=== PATIENT | female | born 1945 | race Caucasian/White ===

== ENCOUNTER 2016-03-15 15:17 | Inpatient (IN) | payer MEDICARE, OTHER ==
[~2016-03-15] VITALS: Ht 160 cm; Wt 63.5 kg
[2016-03-15] VITALS: BP 102/87
[~2016-03-15 15:17] MED LIST: ACTIGALL 300 M300 MG PO; CALTRATE 600 M600 M1 PO; CORGARD20 MG PO; CYMBALTA60 MG PO; DURAGESIC1 PATCH .4 TRANSDERM; KEPPRA500 MG PO; MILK OF MAGNESI30 ML PO; NORCO 7.5/325 T1 TA1 PO; NORVASC5 MG PO; PLAQUENIL200 MG; PLAQUENIL200 MG PO; PRILOSEC20 MG PO; ROCALTROL0.25 MCG PO; SYNTHROID112 MCG PO; VITAMIN D31000 UNIT PO; VOLTAREN100 GM TOPICAL
[2016-03-15 19:30] LABS: BASOPHILS 0.2 % (0.0-2.0); EOSINOPHILS 0.3 % (0-7); HEMATOCRIT 46.1 % (36.0-48.0); HEMOGLOBIN 15.4 g/dL (12-16); IMMATURE GRANULOCYTES 0.2 % (0-5); LYMPHOCYTES 7.5 % (15-50); MCH 31.3 pg (26.0-34.0); MCHC 33.4 g/dL (31.0-37.0); MCV 93.7 fL (80.0-100.0); MEAN PLATELET VOLUME 10.9 fL (7.4-10.4); NEUTROPHILS 87.8 % (40-80); PLATELET COUNT 193 10x3/uL (130-400); RBC 4.92 10x6/uL (4.00-5.40); RDW 13.5 % (11.5-14.5); WBC 10.6 10x3/uL (4.8-10.8)
[2016-03-15 20:08] LABS: ALKALINE PHOSPHATASE 92 U/L (46-116); ALT (SGPT) 26 U/L (10-68); BILIRUBIN - TOTAL 0.82 mg/dL (0.2-1.3); CALC OSMOLALITY 282 mosm/kg (275-300); CALCIUM 9.8 mg/dL (8.5-10.1); CHLORIDE - SERUM 100 mmol/L (98-107); CREATININE - SERUM 0.6 mg/dL (0.6-1.3); GLUCOSE 162 mg/dL (74-106); POTASSIUM - SERUM 3.1 mmol/L (3.5-5.1); PROTEIN - SERUM 7.6 g/dL (6.4-8.2); SODIUM 139 mmol/L (136-145); UREA NITROGEN 16 mg/dL (7-18); eGFR NON AFRICAN AMERICAN > 90 mL/min (90-120)
[2016-03-15 20:18] LABS: AMYLASE - SERUM 112 U/L (25-115); LIPASE 76 U/L (73-393); PRO BNP 355 pg/mL (0-125); TROPONIN-I < 0.017 ng/mL (0.000-0.060)
--- NOTE | 2016-03-15 20:50 | NUR ---
PT ARRIVED TO ICU VIA STRETCHER FROM ER. VSS. PIV TO RIGHT AC; PATENT.
--- NOTE | 2016-03-15 21:25 | NUR ---
ASSESSMENT COMPELTE. S1S2. PT LETHARGIC; EASILY AROUSED; FALLS ASLEEP WHILE TALKING. STATED, "THE SHOTS THEY GAVE ME, MADE ME SLEEPY." PERRLA 2MM; BRISK. AAO. RADIAL AND PEDAL PULSES PALPATED. VSS.
[2016-03-15 21:59] VITALS: BP 126/86; BMI 24.8
[2016-03-15 23:00] VITALS: BP 107/87
[2016-03-15 23:15] VITALS: BP 115/87
[2016-03-15 23:30] VITALS: BP 117/87
[2016-03-15 23:45] VITALS: BP 122/78
[2016-03-16] VITALS (40 sets, daily range): BP systolic 28–142; BP diastolic 56–98; Ht 160 cm; Wt 63.5 kg
--- NOTE | 2016-03-16 01:20 | NUR ---
PT RESTING; EYES CLOSED. NO DISTRESS NOTED. VSS. CALL LIGHT IN REACH. WILL CONTINUE TO MONITOR.
--- NOTE | 2016-03-16 03:00 | NUR ---
REASSESSMENT COMPELTE. NO CHANGES FROM PREVIOUS ASSESSMENT. WILL CONTINUE TO MONITOR.
[2016-03-16 05:23] LABS: BASOPHILS 0.1 % (0.0-2.0); EOSINOPHILS 0 % (0-7); HEMATOCRIT 40.8 % (36.0-48.0); HEMOGLOBIN 13.5 g/dL (12-16); IMMATURE GRANULOCYTES 0.3 % (0-5); LYMPHOCYTES 16.7 % (15-50); MCH 30.9 pg (26.0-34.0); MCHC 33.1 g/dL (31.0-37.0); MCV 93.4 fL (80.0-100.0); MEAN PLATELET VOLUME 10.7 fL (7.4-10.4); MONOCYTES 6.3 % (2-11); NEUTROPHILS 76.6 % (40-80); PLATELET COUNT 204 10x3/uL (130-400); RBC 4.37 10x6/uL (4.00-5.40); RDW 13.4 % (11.5-14.5)
[2016-03-16 05:27] LABS: WBC 7.8 10x3/uL (4.8-10.8)
[2016-03-16 05:29] LABS: CALC OSMOLALITY 284 mosm/kg (275-300); CALCIUM 8.6 mg/dL (8.5-10.1); CARBON DIOXIDE 21.9 mmol/L (21.0-32.0); CHLORIDE - SERUM 103 mmol/L (98-107); CREATININE - SERUM 0.7 mg/dL (0.6-1.3); GLUCOSE 74 mg/dL (74-106); POTASSIUM - SERUM 3.2 mmol/L (3.5-5.1); SODIUM 142 mmol/L (136-145); UREA NITROGEN 20 mg/dL (7-18); eGFR NON AFRICAN AMERICAN 88 mL/min (90-120)
--- NOTE | 2016-03-16 07:30 | NUR ---
ASSESSMENT COMPLETE. AAO X4. RT PUPIL 4MM BRISK, LT PUPIL 3MM BRISK. RRLA. S1S2 NOTED, RADIAL AND PEDAL PULSES PALP. CLEAR LUNGS, ROOM AIR. NSR. ACTIVE BOWEL SOUNDS X4. UP WITH SUPERVISION TO BEDSIDE COMMOADE. FOR OTHER ASSESSMENT FINDINGS SEE FLOWSHEET
--- NOTE | 2016-03-16 09:00 | NUR ---
FAMILY AT BEDSIDE. DENIES NEEDS. QUESTIONS ANSWERED. PATIENT WAS ABLE TO SWALLOW HONEY THICKENED WATER WITH PILLS.
--- NOTE | 2016-03-16 11:10 | NUR ---
NOTIFIED DR. TLELO'S OPERATIONS INTELLIGENCE SUPERINTENDENT JEANINE OF UNEQUAL PUPIL SIZE
--- NOTE | 2016-03-16 11:25 | NUR ---
DR. TELLO'S NURSE AT BEDSIDE SPEAKING WITH FAMILY. REASSESSMENT COMPLETE. SEE FLOWSHEET FOR DETAILS.
--- NOTE | 2016-03-16 12:02 | NUR ---
CALLED DR. LONG OFFICE TO CLARIFY ORDERS, WILL CALL BACK LATER
--- NOTE | 2016-03-16 13:30 | NUR ---
RECEIVED NEW ORDERS FROM DR. LONG
--- NOTE | 2016-03-16 15:15 | NUR ---
REASSESSMENT COMPLETE, SEE FLOWSHEET FOR DETAILS.
--- NOTE | 2016-03-16 17:03 | NUR ---
REMAINS NSR ON MONITOR. DENIES PAIN. DENIES NEEDS. ROOM AIR.
--- NOTE | 2016-03-16 18:27 | NUR ---
FAMILY AT BEDSIDE, UPDATE PROVIDED
--- NOTE | 2016-03-16 19:00 | NUR ---
RECEIVED PATIENT AWAKE IN BED WITH AT BEDSIDE, ASSESSMENT COMPLETE PER FLOW SHEET. PATIENT IS AO X4, DEMEANOR IS PLEASANT. EYES PERRLA WITH L @ 3MM AND R @ 4MM BRISK RESPONSE BILATERAL, SCLERA IS WHITE. ORAL/NASAL MUCOSA IS MOIST AND INTACT, TONGUE IS MIDLINE. S1/S2 NOTED WITH PATIENT NSR ON TELEMETRY, RATE IS RYTHMIC AND REGULAR. BREATHING IS EVEN AND EFFORTLESS ON RA, LUNG SOUNDS CLEAR THROUGHOUT. ABDOMEN IS SOFT AND NON-TENDER, BOWEL SOUNDS SLIGHTLY HYPOACTIVE X4. PATIENT IS ABLE TO USE BEDSIDE COMMODE, NO PAIN OR DIFFICULTY NOTED. FULL ROM ALL EXTREMITIES, NO WEAKNESS NOTED IN TICKET SCHEDULER/PEDAL. ALL PULSES PALPABLE, CAP REFILL <3 SEC. 20G IV R AC WITH FLUIDS INFUSING, SEE FLOW SHEET. PATIENT STATES HEADACHE WITH PAIN 2/10, ALREADY GIVEN MEDICATION TO RELIEVE AND WILL REASSESS. PATIENT STATES HX OF "BRAIN BLEEDS" WELL HX OF "CREST SYNDROME" WHICH CAUSES CHRONIC DISCOMFORT. NO FURTHER NEEDS AT THIS TIME, ALL VSS AND WILL CONTINUE TO MONITOR.
--- NOTE | 2016-03-16 21:00 | NUR ---
NO VISITORS AT THIS TIME, PATIENT AWAKE IN BED WITH EYES CLOSED. C/O HEADACHE PAIN 08/31, GIVEN PRN PAIN MEDICATION AND MAYLIN REASSESS. BEDTIME MEDICATION GIVEN WITH NO DIFFICULTY, PATIENT SWALLOWED WITH REGULAR WATER. NO FURTHER NEEDS AT THIS TIME, ALL VSS AND WILL CONTINUE TO MONITOR.
--- NOTE | 2016-03-16 23:00 | NUR ---
REASSESSMENT COMPLETE PER FLOWSHEET, PATIENT RESTING IN BED AWAKE WITH EYES CLOSED. PATIENT C/O HEADACHE SPECIFICALLY AROUND R EYE, NO ERYTHEMA OR SWELLING NOTED AT THIS TIME. PATIENT AO X4, DEMEANOR IS PLEASANT WITH FACIAL WINCING FROM DISCOMFORT. PATIENT RATES PAIN 3/10, PRN PAIN MEDICATION GIVEN AND WILL REASSESS. REPOSITIONED FOR COMFORT, DENIES OTHER NEEDS AT THIS TIME. ALL VSS AND WILL CONTINUE TO MONITOR.
[2016-03-17] VITALS (24 sets, daily range): BP systolic 113–147; BP diastolic 57–93
--- NOTE | 2016-03-17 01:20 | NUR ---
PATIENT AMBULATED TO BEDSIDE COMMODE ON OWN AND WASHED HANDS IN SINK AFTER. SMALL AMOUNT OF FORMED STOOL PRESENT, 200ML CLEAR YELLOW URINE NOTED IN COMMODE. PATIENT STATES HEADACHE IS "BETTER" AND IS ATTEMPTING TO REST. PATIENT DENIES OTHER NEEDS AT THIS TIME, ALL VSS AND WILL CONTINUE TO MONITOR.
--- NOTE | 2016-03-17 02:50 | NUR ---
REASSESSMENT COMPLETE PER FLOWSHEET, PATIENT RESTING IN BED WITH EYES CLOSED. PATIENT IS AO X4, DEMEANOR IS PLEASANT. BREATHING IS EVEN AND UNLABORED ON RA, OXYGEN SAT IS 97%. PATIENT STILL C/O HEADACHE BUT STATES THAT "PAIN IS MUCH BETTER". PATIENT DENIES OTHER NEEDS AT THIS TIME, ALL VSS AND WILL CONTINUE TO MONITOR.
[2016-03-17 04:23] LABS: BASOPHILS 0.2 % (0.0-2.0); EOSINOPHILS 1.6 % (0-7); HEMATOCRIT 40.7 % (36.0-48.0); HEMOGLOBIN 13.3 g/dL (12-16); IMMATURE GRANULOCYTES 0.2 % (0-5); LYMPHOCYTES 18.3 % (15-50); MCH 30.8 pg (26.0-34.0); MCHC 32.7 g/dL (31.0-37.0); MCV 94.2 fL (80.0-100.0); MEAN PLATELET VOLUME 10.6 fL (7.4-10.4); MONOCYTES 10.8 % (2-11); NEUTROPHILS 68.9 % (40-80); PLATELET COUNT 194 10x3/uL (130-400); RBC 4.32 10x6/uL (4.00-5.40); RDW 13.6 % (11.5-14.5); WBC 8.2 10x3/uL (4.8-10.8)
[2016-03-17 04:25] LABS: CALC OSMOLALITY 278 mosm/kg (275-300); CALCIUM 8.2 mg/dL (8.5-10.1); CARBON DIOXIDE 26.5 mmol/L (21.0-32.0); CHLORIDE - SERUM 102 mmol/L (98-107); CREATININE - SERUM 0.6 mg/dL (0.6-1.3); GLUCOSE 76 mg/dL (74-106); POTASSIUM - SERUM 3.5 mmol/L (3.5-5.1); SODIUM 140 mmol/L (136-145); UREA NITROGEN 15 mg/dL (7-18); eGFR NON AFRICAN AMERICAN > 90 mL/min (90-120)
--- NOTE | 2016-03-17 05:51 | NUR ---
PATIENT RESTING IN BED WITH EYES CLOSED, BREATHING IS EVEN AND EFFORTLESS. PATIENT STATES HEADACHE IS "STILL THERE BUT BETTER", RATES PAIN 1/10. PATIENT DENIES OTHER NEEDS AT THIS TIME, ALL VSS AND WILL CONTINUE TO MONITOR.
--- NOTE | 2016-03-17 07:00 | NUR ---
REC'D REPORT AND RESUMED CARE, SLEEPING AROUSABLE TO VERBAL STIMULI, LETHARGIC AND ORIENTED, VSS, O2 VIA NASAL CANNULA, SAT 97%, BSC IN USE, VSS, ASSESSMENT COMPLETE PER FLOWSHEET, SELF REPOSITIONS, CALL LIGHT IN REACH, C/O ESPARZA , MEDS GIVEN AT 0605, WILL CONTINUE WITH POC
--- NOTE | 2016-03-17 07:30 | NUR ---
DR LINN HERE FOR EVAL, NEW ORDERS GIVEN
--- NOTE | 2016-03-17 09:00 | NUR ---
AM MEDS GIVEN WITHOUT DIFFICULTY
--- NOTE | 2016-03-17 09:38 | NUR ---
Is the patient Alert and Oriented? Yes 0 * How many steps to enter\exit or inside your home? 0 0 * PCP DR. LINN 0 * Pharmacy [facility] [address] * Preadmission Environment Home with Family 0 * ADLs Independent 0 * Equipment Cane Walker 0 * Other Equipment PATIENT STATES WALKER WITH A SEAT 0 * List name and contact numbers for known caregivers / representatives who currently or will assist patient after discharge: SPOUSE: ABIMAEL MCGOVERN [phone] 0 * Community resources currently utilized None 0 * Additional services required to return to the preadmission environment? No 0 * Can the patient safely return to the preadmission environment? Yes 0 * Has this patient been hospitalized within the prior 30 days at any hospital? No PATIENT STATES SHE WAS INDEPENDENT AND LIVING AT HOME WITH HER PRIOR TO COMING TO THE HOSPITAL. HER PCP IS DR. LINN. SHE GETS HER MEDS FROM THE [facility] [employer] [facility] [address] PATIENT STATES SHE HAS A WALKER WITH SEAT, A CANE, AND GRAB BARS IN HER SHOWER. PATIENT DENIES EVER HAVING HOME HEALTH. SHE STATES THERE ARE NOT STEPS TO ENTER HER HOME. PATIENT AND HER DO NOT WANT ANY TYPE OF REHAB. SHE DOES NOT HAVE ANY DEFICITS AT THIS TIME. PATIENT PLANS TO RETURN HOME AND HER SPOUSE WILL DRIVE HER HOME AT DISCHARGE.
--- NOTE | 2016-03-17 10:15 | NUR ---
TO RADIOLOGY FOR HEAD CT VIA WHEELCHAIR WITH PERSONNEL X1, NO NEEDS AT THIS TIME
--- NOTE | 2016-03-17 11:00 | NUR ---
ASSISTED WITH BATH AND COMPLETED LINEN CHANGE, ASSESSMENT COMPLETE PER FLOWSHEET, SELF REPOSITIONS, TOLERATED WITHOUT DIFFICULTY, NO NEEDS AT THIS TIME
--- NOTE | 2016-03-17 12:00 | NUR ---
FAMILY AT THE BEDSIDE, STATUS UPDATED, AWAITING FOR RESULTS OF REPEAT CT, NO OTHER NEEDS AT THIS TIME
--- NOTE | 2016-03-17 12:25 | NUR ---
PC FROM DR PRESSLEY, INFO GIVEN FOR CONSULT
--- NOTE | 2016-03-17 13:05 | NUR ---
OOB TO BSC, LARGE FORM STOOL TO AGOSTO, SKINCARE INDPENDENT, STAND BY ASSIST FOR BTB
--- NOTE | 2016-03-17 17:01 | NUR ---
OOB TO BSC WITH STAND BY ASSIST, 300 CC URINE TO COMMODE
--- NOTE | 2016-03-17 19:15 | NUR ---
FAMILY AT BEDSIDE; UPDATE GIVEN.
--- NOTE | 2016-03-17 19:30 | NUR ---
ASSESSMENT COMPLETE. S1S2. RR SHALLOW CLEAR BILATERALLY IN UPPER LOBES; SLIGHT DIMINISHING BILATERALLY IN LOWER LOBES. RADIAL/PEDAL PULSES PALPATED. AAO. DENIES PAIN AT THIS TIME, STATED, "HAD A HEADACHE EARLIER." CALCIUM DEPOSITS NOTED BILATERALLY ON ELBOWS, TEGADERM APPLIED PER PATIENT REQUEST.
--- NOTE | 2016-03-17 20:50 | NUR ---
PT C/O HEACACHE. PRN HYDRO GIVEN. SEE EMAR FOR DETAILS.
--- NOTE | 2016-03-17 23:00 | NUR ---
REASSESSMENT COMPLETE. NO CHANGES FROM PREVIOUS ASSESSMENT. VSS. CALL LIGHT IN REACH. SEE FLOW SHEET FOR DETAILS.
[2016-03-18] VITALS (18 sets, daily range): BP systolic 111–139; BP diastolic 48–99
--- NOTE | 2016-03-18 00:35 | NUR ---
PT RESTING; EYES CLOSED. NO DISTRESS NOTED. VSS. CALL LIGHT IN REACH. WILL CONTINUE TO MONITOR.
--- NOTE | 2016-03-18 02:45 | NUR ---
REASSESSMENT COMPELTE. NO CHANGES FROM PREVIOUS ASSESSMENT. CALL LIGHT IN REACH. VSS.
[2016-03-18 04:54] LABS: BASOPHILS 0.4 % (0.0-2.0); HEMATOCRIT 39.5 % (36.0-48.0); HEMOGLOBIN 13.1 g/dL (12-16); IMMATURE GRANULOCYTES 0.2 % (0-5); LYMPHOCYTES 27.6 % (15-50); MCH 30.8 pg (26.0-34.0); MCHC 33.2 g/dL (31.0-37.0); MCV 92.7 fL (80.0-100.0); MEAN PLATELET VOLUME 10.3 fL (7.4-10.4); MONOCYTES 11.1 % (2-11); NEUTROPHILS 58.7 % (40-80); PLATELET COUNT 168 10x3/uL (130-400); RBC 4.26 10x6/uL (4.00-5.40); RDW 13.3 % (11.5-14.5)
[2016-03-18 05:03] LABS: WBC 5.4 10x3/uL (4.8-10.8)
[2016-03-18 05:07] LABS: APTT 29.3 SECONDS (22.8-39.4); INR 1.07 (0.85-1.17); PROTIME 13.8 SECONDS (11.6-15.0)
--- NOTE | 2016-03-18 07:15 | NUR ---
REC'D REPORT AND RESUMED CARE, AAO, VSS, DENIES PAIN, ASSESSMENT COMPLETE PER FLOWSHEET, OOB TO CHAIR WITH MODERATE ASSIST, TOLERATED TRANSFER, CALL LIGHT, IN REACH, SPOUSE AT BEDSIDE, AWAITNG TO TO SPEAK WITH DR. LINN, NO OTHER NEEDS AT THIS TIME
--- NOTE | 2016-03-18 08:15 | NUR ---
OUT OF CHAIR TO BSC WITH ASSIST, LARGE FORMED STOOL TO AGOSTO, SKINCARE INDEPENDENTLY, BACK TO CHAIR WITH ASSIST
--- NOTE | 2016-03-18 08:30 | NUR ---
BREAKFAST TRAY TO CHAIR SIDE, INDEPENDENT WITH SET UP AND EATING
--- NOTE | 2016-03-18 09:13 | NUR ---
NUTRITION MONITORING & EVAL CHART REVIEWED, PT VISIT. TOLERATING REG DIET, GOOD PO INTAKE PER PT REPORT. WAITING FOR TX TO FLOOR. RD FOLLOWING
--- NOTE | 2016-03-18 11:00 | NUR ---
NO ACUTE CHANGE FROM PREVIOUS ASSESSMENT, VSS, DENIES PAIN, CALL LIGHT IN REACH, NO NEEDS AT THIS TIME
--- NOTE | 2016-03-18 12:00 | NUR ---
LUNCH TRAY TO BEDSIDE, INDEPENDENT WITH SET UP AND EATING, NO OTHER NEEDS AT THIS TIME, SPOUSE AT BEDSIDE, STATUS UPDATED, AWAITING TRANSFER OUT OF ICU
--- NOTE | 2016-03-18 15:00 | NUR ---
FAMILY AND FRIENDS AT BEDSIDE, STATUS UPDATED, ASSESSMENT COMPLETE, NO ACUTE CHANGE FROM PREVIOUS
--- NOTE | 2016-03-18 16:30 | NUR ---
FENTANYL [address] TO RIGHT CHEST PER APR ORDER, I AND O'S COMPLETED
--- NOTE | 2016-03-18 18:00 | NUR ---
RESTING WITH SPOUSE AT BEDSIDE, VSS, CALL LIGHT IN REACH, DENIES ANY NEEDS AT THIS TIME
--- NOTE | 2016-03-18 19:30 | NUR ---
ASSESSMENT COMPLETE. S1S2. RR CLEAR BILATERALLY; NON LABORED. PT AMBULATES WITHOUT ASSIST. AAO. PERRLA. CALCIUM DEPOSITS BILATERALLY ON ELBOWS. RADIAL AND PEDAL PULSES PALPATED.
--- NOTE | 2016-03-18 21:45 | NUR ---
PT UP TO BEDSIDE COMMODE; INDEPENDENTLY. OUTPUT: 400 CLEAR YELLOW URINE.
[2016-03-19 03:00] VITALS: BP 129/65
[2016-03-19 04:28] LABS: BASOPHILS 0.1 % (0.0-2.0); EOSINOPHILS 1.2 % (0-7); HEMATOCRIT 39.5 % (36.0-48.0); HEMOGLOBIN 13.2 g/dL (12-16); IMMATURE GRANULOCYTES 0.1 % (0-5); LYMPHOCYTES 18.5 % (15-50); MCH 30.8 pg (26.0-34.0); MCHC 33.4 g/dL (31.0-37.0); MCV 92.3 fL (80.0-100.0); MEAN PLATELET VOLUME 10.2 fL (7.4-10.4); MONOCYTES 10.7 % (2-11); NEUTROPHILS 69.4 % (40-80); PLATELET COUNT 172 10x3/uL (130-400); RBC 4.28 10x6/uL (4.00-5.40); RDW 13.4 % (11.5-14.5)
--- NOTE | 2016-03-19 04:30 | NUR ---
PT UP TO BEDSIDE COMMODE; SUPERVISED BUT INDEPENDENT. GAIT STEADY; VSS.
[2016-03-19 04:36] LABS: CALC OSMOLALITY 275 mosm/kg (275-300); CALCIUM 7.9 mg/dL (8.5-10.1); CHLORIDE - SERUM 102 mmol/L (98-107); CREATININE - SERUM 0.5 mg/dL (0.6-1.3); GLUCOSE 81 mg/dL (74-106); POTASSIUM - SERUM 3.1 mmol/L (3.5-5.1); SODIUM 140 mmol/L (136-145); UREA NITROGEN 8 mg/dL (7-18); eGFR NON AFRICAN AMERICAN > 90 mL/min (90-120)
[2016-03-19 04:44] LABS: WBC 7.3 10x3/uL (4.8-10.8)
--- NOTE | 2016-03-19 05:45 | NUR ---
PT WOKE UP CONFUSED. UNAWARE OF LOCATION. PT STATED, "IT DOESN'T FEEL RIGHT." PT AWARE OF BEING CONFUSED. REMEMBERED THIS NURSE BY NAME. VSS. GARCIA. WILL CONTINUE TO MONITOR.
--- NOTE | 2016-03-19 07:28 | NUR ---
ASSESSMENT COMPLETE PER FLOWSHEET. VOICES NO CO AT TIME. OK FOR DISCHARGE PER DR AWAD. DR PRESSLEY CALLED NO F/U NEEDED. KELSIE AZAR CALLED F/U MADE AND ALREADY GIVEN TO PT.
--- NOTE | 2016-03-19 08:50 | NUR ---
LEFT VIA PRIVATE AUTO. VOICES NO QUESTIONS ABOUT DISCHARGE.
--- NOTE | 2016-03-24 07:21 | HP ---
PATIENT: ABISAI MCGOVERN MEDICAL RECORD: [id number] ACCOUNT: [id number] LOCATION:[facility] D.[id number] : 47 ADMISSION DATE: 03/15/16 HISTORY AND PHYSICAL EXAMINATION DATE OF ADMISSION: 03/15/2016 CHIEF COMPLAINT: Chronic nausea, vomiting and headache. HISTORY OF PRESENT ILLNESS: The patient is a 70-year-old female with history of CREST syndrome. The patient states for the past several days, she has had chronic nausea. She has had vomiting. On the day of her admission, she developed a headache, presented to the Emergency Room. The patient had a chest x-ray, which was unremarkable, but she also had a cranial CT scan, which showed two areas of hemorrhage. The patient has had parathyroid adenoma. She has had a hysterectomy. She has also had a tubal and tonsillectomy. She has had a history of having CREST syndrome. FAMILY HISTORY: Mother had heart disease. Father had myocardial infarction. ALLERGIES: PENICILLIN, PREDNISONE. MEDICATIONS: Include amlodipine 5 mg 1 p.o. q. day, Celebrex 200 mg 1 p.o. b.i.d. with food, Cymbalta 60 mg 1 p.o. q. day, fentanyl 12 mcg transdermal patch changing every 72 hours, Tiona 7.5/325 one every 6 hours, levothyroxine 100 mcg once a day, nadolol 20 mg p.o. q. day, ursodiol 300 mg twice daily, Voltaren 1% topical cream applying 4 times a day. HABITS: Does state she is a moderate caffeine consumer. She denies any tobacco use or alcohol use. SOCIAL HISTORY: The patient was born in [place], [place]. She is retired, 2 years of college education. She is currently . REVIEW OF SYSTEMS: CONSTITUTIONAL: The patient does report having a headache. At the present time she is having no headache. She denies any change in visual or auditory acuity. CARDIOVASCULAR: She denies any chest pain, palpitation, PND, orthopnea. GASTROINTESTINAL: As stated above. GENITOURINARY: No urgency, frequency, or dysuria. PHYSICAL EXAMINATION: VITAL SIGNS: The patient initially had a pulse of 96. Her temperature was 100.3, respirations 18, her blood pressure 126/86, pulse ox 97. GENERAL: She is alert. She is oriented times 3. HEENT: Her head is normocephalic. No lesions. Ears: TMs clear. Eyes: Pupils equal, round and reactive to light. Extraocular movements intact. Nasal cavity, oral cavity, oropharynx clear. NECK: Supple. There is no adenopathy. HEART: Has no murmurs, gallops or rubs. LUNGS: Clear. ABDOMEN: Soft, bowel sounds are positive. EXTREMITIES: Lower extremities have no edema. The patient is able to perform [id number] and rbiu-ps-rnor testing. HISTORY AND PHYSICAL [id number] ABISAI MCGOVERN LABORATORY DATA: Initially, the patient's white count is 10.6, hemoglobin 15.4, hematocrit 46.1, her platelets were 193. She had a potassium 3.1, sodium was 139, chloride 100, CO2 is 25, BUN 16, creatinine 0.6, glucose 162. ProBNP was 350. TSH was slightly low at 0.1. The patient had a chest x-ray. Chest x-ray revealed no radiopaque foreign body seen in the chest, oral contrast seen in the distal esophagus and proximal stomach. No acute cardiomegaly abnormalities were seen. Cranial CT scan did reveal two acute intraparenchymal hemorrhages are noted, the larger measuring 2.4 cm in the right temporal and a smaller measuring 6 mm in the left occipital, moderate burden of hypoattenuation in the periventricular and subcortical white matters were seen. Small vessel ischemic changes were also noted. ASSESSMENT: Chronic nausea and vomiting intracranial hemorrhage, history of CREST syndrome, hypothyroidism. PLAN: The patient is admitted to ICU. Neurosurgery consultation was obtained. The patient will be placed on nifedipine, also repeat brain CT in a.m. Continue to monitor. TRANSINT:[id number] Voice Confirmation ID: [id number] DOCUMENT ID: [id number] ELIDA RIGGINS MD at 0721 CC: [id number] DICTATION DATE: 03/16/16632 PEDIATRIC HOSPITALIST: 03/16/16 0738 DIS IN 03/19/16 [facility] [address] [place] [address]
--- NOTE | 2016-04-01 07:59 | DS ---
PATIENT:ABISAI MCGOVERN :49 MEDICAL RECORD: [id number] DISCHARGE SUMMARY ADMISSION DATE: 03/15/16 DISCHARGE DATE: 03/19/16 DATE OF ADMISSION: 03/15/2016. DATE OF DISCHARGE: 03/19/2016. ADMISSION DIAGNOSES: Intracranial hemorrhage, nausea and vomiting, CREST syndrome, and hypothyroidism. DISCHARGE DIAGNOSES: Intracranial hemorrhage, CREST syndrome, hypothyroidism, nausea and vomiting, also include on admission chronic back pain, polyarthralgia secondary to her CREST syndrome and also on the discharge. HOSPITAL COURSE: The patient was admitted through the Emergency Room with the above symptoms. She has a remote history of traumatic intracranial bleed with her symptoms. CT of her head was obtained, which showed two acute intraparenchymal hematomas, the larger 2.4 cm in right temporal lobe and a smaller 6 mm in the left occipital lobe. Neurosurgery and neurology were consulted and she was followed with serial CTs. Her symptoms have completely resolved. Her blood pressure and pain is well controlled. She is anxious to be discharged. Neurology and neurosurgery report has no intervention warranted or of benefit. She is alert and oriented. Anxious to go home. She is discharged home in significantly improved condition. Her symptoms have completely resolved. PHYSICAL EXAMINATION: VITAL SIGNS ON DISCHARGE: Temperature 99.3, blood pressure is 129/65, heart rate 62, respirations 16, O2 sats 97% on room air. She is tolerating a regular diet. HEART: Regular rate and rhythm. LUNGS: Clear. ABDOMEN: Soft. EXTREMITIES: Present times 4. NEUROLOGIC: Cranial nerves II through XII intact. No focal deficits. SKIN: Warm and dry. No rash. LABORATORY DATA: CBC on discharge, white count 7.3, hemoglobin 13.2, hematocrit 39.5, platelets 172. Chemistry: Sodium 140, potassium slightly low at 3.1, chloride 102, bicarbonate 26. BUN 8, creatinine ____. DISCHARGE INSTRUCTIONS: The patient will follow up in the clinic in 7-10 days. DISCHARGE DIET: Potassium rich diet. DISCHARGE MEDICATIONS: Per med rec. Return to the ER with any recurrence of symptoms. TRANSINT:[id number] Voice Confirmation ID: [id number] DOCUMENT ID: [id number] DISCHARGE SUMMARY REPORT [id number] ABISAI MCGOVERN ROBERT DO at 0759 CC: [id number] DICTATION DATE: 03/19/16 0745 WHIRLEY OPERATOR: 03/19/16 0812 DIS IN 03/19/16 [facility] [address] [place] [id number]
== END 2016-03-19 08:59 | disposition home or self-care (01) | DRG 66 ==
LOC: D.ER 15:17 → D.ICU 20:36
PROVIDERS: Family Medicine; ADMIT Family Medicine
DX: I61.9 Nontraumatic intracerebral hemorrhage, unspecified (principal); I10 Essential (primary) hypertension; E03.9 Hypothyroidism, unspecified; M34.1 CR(E)ST syndrome; R40.2143 Coma scale, eyes open, spontaneous, at hospital admission; R40.2363 Coma scale, best motor response, obeys commands, at hospital admission; R40.2253 Coma scale, best verbal response, oriented, at hospital admission

== ENCOUNTER → 2016-04-06 08:48 | Outpatient (CLI) | payer MEDICARE, OTHER ==
[2016-03-16 09:15] VITALS: BMI 24.8
== END | disposition home or self-care (01) ==
LOC: D.MRI 04-01 09:00
DX: I61.9 Nontraumatic intracerebral hemorrhage, unspecified (principal)

== ENCOUNTER → 2016-04-15 12:41 | Outpatient (CLI) | payer MEDICARE, OTHER ==
[2016-03-16 09:15] VITALS: BMI 24.8
== END | disposition home or self-care (01) ==
LOC: D.RAD 04-07 13:00
DX: R13.10 Dysphagia, unspecified (principal)

== ENCOUNTER 2017-12-03 15:51 | Emergency (ER) | payer MEDICARE, OTHER ==
[~2017-12-03] VITALS: Ht 160 cm; Wt 64.0 kg
[2017-12-03 16:10] VITALS: Ht 160 cm; Wt 64.0 kg
[2017-12-03] MEDS ORDERED: PROBIOTIC BLEN1 EACH (16:12)
[2017-12-03] MEDS ORDERED: CELEBREX50 MG (16:12)
[2017-12-03] MEDS ORDERED: UNISOM SLEEP AI25 MG (16:13)
[2017-12-03 16:33] LABS: BASOPHILS 0.2 % (0-2); EOSINOPHILS 2.4 % (0-7); HEMATOCRIT 40.9 % (36.0-48.0); HEMOGLOBIN 13.3 g/dL (12-16); IMMATURE GRANULOCYTES 0.3 % (0-5); LYMPHOCYTES 23.4 % (15-50); MCH 30.2 pg (26.0-34.0); MCHC 32.5 g/dL (31.0-37.0); MCV 92.7 fL (80.0-100.0); MEAN PLATELET VOLUME 10.5 fL (7.4-10.4); MONOCYTES 10.3 % (2-11); NEUTROPHILS 63.4 % (40-80); PLATELET COUNT 175 10x3/uL (130-400); RBC 4.41 10x6/uL (4.00-5.40); RDW 14.8 % (11.5-14.5)
[2017-12-03 16:45] LABS: APTT 31.7 SECONDS (22.8-39.4); INR 1.04 (0.85-1.17); PROTIME 13.2 SECONDS (11.6-15.0)
[2017-12-03 16:50] LABS: ALBUMIN 3.6 g/dL (3.4-5.0); ALKALINE PHOSPHATASE 80 U/L (46-116); ALT (SGPT) 15 U/L (10-68); BILIRUBIN - TOTAL 0.48 mg/dL (0.2-1.3); CALC OSMOLALITY 284 mosm/kg (275-300); CALCIUM 8.7 mg/dL (8.5-10.1); CARBON DIOXIDE 27.4 mmol/L (21.0-32.0); CHLORIDE - SERUM 103 mmol/L (98-107); CREATININE - SERUM 0.6 mg/dL (0.6-1.3); GLUCOSE 90 mg/dL (74-106); POTASSIUM - SERUM 4.3 mmol/L (3.5-5.1); PROTEIN - SERUM 7.3 g/dL (6.4-8.2); SODIUM 142 mmol/L (136-145); UREA NITROGEN 17 mg/dL (7-18); eGFR NON AFRICAN AMERICAN > 90 mL/min (90-120)
[2017-12-03 17:02] LABS: CKMB 0.8 U/L (0.0-3.6); CREATINE KINASE 46 UL (21-215); MAGNESIUM - SERUM 1.9 mg/dL (1.8-2.4); THYROID STIMULATING HORMONE 0.93 uIU/mL (0.36-3.74); TROPONIN-I < 0.017 ng/mL (0.000-0.060)
[2017-12-03 20:10] LABS: TROPONIN-I < 0.017 ng/mL (0.000-0.060)
[2017-12-03 22:07] VITALS: BP 152/77
== END 2017-12-03 22:09 | disposition other institution (70) ==
LOC: D.ER 15:51
PROVIDERS: Family Medicine
DX: R07.9 Chest pain, unspecified (principal); G40.209 Localization-related (focal) (partial) symptomatic epilepsy and epileptic syndromes with complex partial seizures, not intractable, without status epilepticus; R20.2 Paresthesia of skin; I10 Essential (primary) hypertension; Z86.73 Personal history of transient ischemic attack (TIA), and cerebral infarction without residual deficits; E07.9 Disorder of thyroid, unspecified; R00.1 Bradycardia, unspecified